=== PATIENT | female | born 1965 | race African-American/Black ===

== ENCOUNTER 2019-03-08 21:02 | Emergency (ER) | payer OTHER ==
[2019-03-08 21:08] VITALS: BP 163/88; PULSE 81; TEMP 98.2; BMI 27.4
--- NOTE | 2019-03-08 22:16 | PDOC ---
History of Present Illness - General Chief Complaint: Pain Stated Complaint: ABD PAIN Time Seen by Provider: 03/08/19 22:09 History Source: Patient - History of Present Illness Timing/Duration: reports: intermittent Pain Radiation: reports: LUQ, epigastric Past History - Past Medical History COPD: No GI Disorders: Yes (GERD) HTN: Yes - Suicide/Smoking/Psychosocial Hx Smoking History: Never smoked Hx Alcohol Use: No Drug/Substance Use Hx: No Review of Systems - Review of Systems Constitutional: No: Chills, Fever ABD/GI: No: Blood Streaked Bowels, Constipated, Diarrhea, Nausea, Rectal Bleeding, Vomiting, Abdominal cramping, Tarry Stools : No: Dysuria, Flank Pain, Hematuria *Physical Exam - Vital Signs Last Vital Signs Temp Pulse Resp BP Pulse Ox 98.2 F 81 19 163/88 100 03/08/19 21:04 03/08/19 21:04 03/08/19 21:04 03/08/19 21:04 03/08/19 21:04 - Physical Exam General Appearance: Yes: Appropriately Dressed. No: Apparent Distress HEENT: positive: Normal Voice Neck: positive: Supple Respiratory/Chest: positive: Lungs Clear, Normal Breath Sounds. negative: Respiratory Distress Cardiovascular: positive: Regular Rate, S1, S2 Gastrointestinal/Abdominal: positive: Normal Bowel Sounds, Soft. negative: Tender, Distended, Guarding, Rebound Musculoskeletal: negative: CVA Tenderness Integumentary: positive: Dry, Warm Neurologic: positive: Fully Oriented, Alert, Normal Mood/Affect Medical Decision Making - Medical Decision Making 03/08/19 22:10 54 yo F, h/o HTN, gastritis, no longer takes pepcid, here to discuss recent EGD report. States 2 years ago she developed upper abdominal pain and was seen by Dr Encarnacion of GI and had EGD done 10/2018. Patient states she was told prior to study that she most likely have gastritis. States no one followed up with her to give her official EGD report however, but that she was finally able to obtain a copy of report yesterday and now here to discuss results. Per report on pt's person, EGD showed chronic gastritis and a 4 cm hiatal hernia with negative biopsy and negative H. pylori per report. Pt states she is concerned about the hiatal hernia as diagnosis is new to her. Continues to have intermittent upper abd pain and states she stopped taking pepcid as meds was not improving sxs. No acute or new GI sxs at this time. Pt well tylor and stable w / benign abd. EGD findings d/w pt in length. Told to take zantac OTC prn pain and call Dr Encarnacion on Sunday to discuss EGD findings and further management. *DC/Admit/Observation/Transfer Diagnosis at time of Disposition: Upper abdominal pain - Discharge Dispostion Disposition: HOME Condition at time of disposition: Improved - Referrals - Patient Instructions Printed Discharge Instructions: Gastritis Additional Instructions: Your EGD report shows chronic gastritis which could explain your symptoms You also have a hiatal hernia Take zantac as directed over the counter Please call Dr Encarnacion on Sunday - Post Discharge Activity
== END 2019-03-08 22:42 | disposition home or self-care (01) ==
LOC: JER 21:02
DX: F10.10 Alcohol abuse, uncomplicated (principal); I10 Essential (primary) hypertension
CPT/HCPCS: 99282-25

== ENCOUNTER 2020-02-09 10:13 | Emergency (ER) | payer OTHER ==
[2020-02-09] MEDS ORDERED: PANTOPRAZOLE SODIUM 40 MG VIAL IVPUSH ONE (10:23)
[2020-02-09 10:26] VITALS: TEMP 97.5; BMI 28.4
--- NOTE | 2020-02-09 10:26 | PDOC ---
Rapid Medical Evaluation Chief Complaint: Pain Time Seen by Provider: 02/09/20 10:20 Medical Evaluation: Allergies Allergy/AdvReac Type Severity Reaction Status Date / Time No Known Allergies Allergy Verified 02/09/20 10:21 02/09/20 10:23 CC: burning to mid chest, was told it was gastritis and has inflammation to LUQ and prescribed flagyl and prednisone Exam: tender to epigastric region Plan: labs, ekg Discharge Disposition - Diagnosis Upper abdominal pain - Referrals - Patient Instructions - Post Discharge Activity
[2020-02-09] MEDS ORDERED: FAMOTIDINE 20 MG/50 ML IVPB 20 MG/50 ML MG IVPB ONE ×2 (10:44→11:16)
[2020-02-09] MEDS ORDERED: MAG HYDROX/AL HYDROX/SIMETH 30 ML UNIT-DOSE CUP PO ONE (10:44)
--- NOTE | 2020-02-09 11:03 | PDOC ---
History of Present Illness - General Chief Complaint: Pain Stated Complaint: ABD. PAIN Time Seen by Provider: 02/09/20 10:20 History Source: Patient Exam Limitations: No Limitations - History of Present Illness Initial Comments: 02/09/20 10:58 HPI 55 YOF with h/o hiatal hernia, gastritis, HTN, GERD, presenting with epigastric burning pain, LUQ abdominal pain, intermittently since last night, radiating to her chest and exacerbated after eating. last evening, she ate stew and rice, earlier in the day had corn meal porridge prior to onset of her symptoms; denies suspicious food intake. this morning she was drinking hot tea, and subsequently had epigastric burning discomfort, coming up to her chest and throat at approx 7AM. she had EGD and colonoscopy about [address] Encarnacion; she has been told likely gastritis/hiatal hernia; she saw Dr Encarnacion as outpatient on 02/05/20, where she was told she was bloated, and rx'd flagyl 250mg tablet x 1 week course and prednisone 10mg x 3 days. she has taken 2 days of her medications, with worsening sx. she was also told to increase dose of H2 dustin, told to take pepcid BID this morning she felt twitching in her left chest, that is reproducible and associated with her sx. also told she has post nasal drip. symptoms worse in the morning such as today. similar presentation to the ED on 03/08/19, with LUQ and epigastric abdominal pain. Per report on pt's person, EGD showed chronic gastritis and a 4 cm hiatal hernia with negative biopsy and negative H. pylori per report. Pt states she is concerned about the hiatal hernia as diagnosis is new to her. Continues to have intermittent upper abd pain and states she stopped taking pepcid as meds was not improving sxs. No acute or new GI sxs at this time. Pt well tylor and stable w/ benign abd. EGD findings d/w pt in length. Told to take zantac OTC prn pain and call Dr Encarnacion on Sunday to discuss EGD findings and further management. Denies fever, chills, chest pain, SOB, palpitation, dizziness, weakness, N, V, D, bladder and bowel problems, focal weakness/paresthesias, leg swelling/pain, rash. No sick contacts or travel. No new changes in medications. No suspicious food intake Allergies: None Past Medical History/ hiatal hernia, gastritis, HTN, GERD PSH: appendectomy Social history: Lives with family. No tobacco, ETOH or drug use. Meds: as documented in EMR Family history: noncontributory GI: Dr Encarnacion Review of systems Constitutional: no fevers or chills. No weakness HEENT: no headache or dizziness. No congestion. No visual/hearing disturbances. CVS: no syncope. no palpitations. +chest burning. Resp: no sob. No cough. Gastrointestinal: no nausea, vomiting, diarrhea. +abdominal pain/burning Genitourinary: no urinary sx, hematuria. MUSCULOSKELETAL: No joint pain and swelling. No neck or back pain. SKIN: no redness or skin changes, no discharge, no rash. No wounds. Hematologic: no easy bruising/bleeding. NEUROLOGIC: No headache, dizziness, LOC or altered mental status. No weakness, numbness or tingling. Psych: no anxiety or depression Allergic/Immunologic: no allergies All other systems reviewed and negative, or as documented in HPI. Physical exam General: Well appearing, awake and alert, NAD. HEENT: NCAT, PERRL, EOMI, clear conjunctiva, anicteric, moist mucus membranes, clear oropharynx, no oral lesions.. Neck: neck supple, FROM Resp: CTAB, normal and even respirations, no respiratory distress CVS: RRR, no murmurs, 2+ peripheral pulses throughout, no peripheral edema Abdomen: soft, NTND, no rebound or guarding. Back: nontender, normal inspection and ROM MSK: no edema, R[place] x4, ROM intact. No clubbing or cyanosis. normal bulk and tone. Extremities: no calf tenderness Neuro: alert, oriented appropriately; no focal neurologic deficits Psych: Calm and cooperative Skin: warm and well perfused, cap refill <2 sec, normal color, no rash or skin discoloration. 02/09/20 11:03 02/09/20 11:04 02/09/20 12:46 Past History - Medical History Allergies/Adverse Reactions: Allergies Allergy/AdvReac Type Severity Reaction Status Date / Time No Known Allergies Allergy Verified 02/09/20 10:21 COPD: No GI Disorders: Yes (GERD) HTN: Yes - Psycho-Social/Smoking History Smoking History: Never smoked - Substance Abuse Hx (Audit-C & DAST Scrn) How often the patient has a drink containing alcohol: Never Score: In Men: 4 or > Positive; In Women: 3 or > Positive: 0 Screen Result (Pos requires Nsg. Audit-10AR): Negative *Physical Exam - Vital Signs Last Vital Signs Temp Pulse Resp BP Pulse Ox 97.5 F L 91 H 17 194/109 H 99 02/09/20 10:21 02/09/20 10:21 02/09/20 10:21 02/09/20 10:21 02/09/20 10:21 Heart Score/ECG Review #1 ECG reviewed & interpreted by me at: 10:35 General ECG Interpretation: Sinus Rhythm, Normal Rate, Normal Intervals 02/09/20 11:42 EKG normal sinus rhythm 81 bpm transfer tech, no interval abnormalities, narrow QRS, ST and T wave segments and morphology normal. ED Treatment Course - LABORATORY CBC & Chemistry Diagram: 02/09/20 10:50 02/09/20 10:50 Medical Decision Making - Medical Decision Making 02/09/20 11:02 Vital Signs Temp Pulse Resp BP Pulse Ox 97.5 F L 91 H 17 194/109 H 99 02/09/20 10:21 02/09/20 10:21 02/09/20 10:21 02/09/20 10:21 02/09/20 10:21 vitals with HTN, has h/o HTN normal HR afebrile, no systemic sx. DDx abdominal pain: Renal colic, biliary colic, metabolic/electrolyte derangem ents. GERD, PUD, esophageal spasm, pancreatitis, hepatitis, constipation, colitis, gastroenteritis, cholecystitis, medication side effect, hernia/hiatal hernia flare no GIB no abdominal tenderness. nonperitoneal no urinary sx no obstructive sx. labs and lytes wnl, normal lipase and LFTs. neg trop, unlikely ACS, with normal nonischemic EKG The patient appears comfortable and states she currently does not have any pain; no cp or sob or abdominal pain. Given medications GI cocktail, maalox/pepcid with clinical improvement. Tolerating oral intake. Vital signs reviewed and are normal. On repeat physical exam, the abdomen is soft and nontender, no suggestive findings for acute abdominal process at this time. repeat VS normalized, no longer HTN. On repeat examination prior to discharge, the patient has a soft abdomen with no peritoneal findings. The patient was advised that even though there is no evidence of a surgical emergency at this time, sometimes this is not visible in the labs early in a disease course and that if there is additional pain they are to return for repeat evaluation. The patient stated understanding of this, has decision making capacity and is discharged in stable condition. The patient was instructed to return to the emergency department for re-evaluation in 8-12 hours and sooner if they feel worse in any way. told to f/u Dr Encarnacion as outpatient told likely med side effect and to stop prednisone which increases risk of bleeding/ulcers and HTN, as well as abx flagyl which has also likely contributed to sx. likely gerd/gastritis, symptom management, hydration and avoid triggers Pt to be discharged in stable condition. Patient and family made aware of c linical impression, treatment recommendations and disposition plan, return precautions discussed (including but not limited to new or persistent/worsening symptoms, pain, fevers, or signs of infection, chest pain, respiratory distress, inability to tolerate oral intake, dehydration, syncope, or neurologic changes). Follow up with PMD and/or specialist as recommended, follow up information provided, take medications as instructed for duration of time. continue with supportive care, avoid triggers and precipitants. All questions answered to patient's satisfaction and expressed understanding and comfort with this. At the time of discharge, the patient is alert, clinically improved, tolerating po and verbalizes understanding of instructions, satisfied with the care received and felt comfortable with the plan. Patient does not suffer from an acute life- threatening medical condition at this time and is safe for outpatient follow- up. 02/09/20 12:46 02/09/20 12:48 02/09/20 12:51 Discharge - Discharge Information Problems reviewed: Yes Clinical Impression/Diagnosis: Upper abdominal pain, Epigastric burning sensation Condition: Improved Disposition: HOME - Admission No - Follow up/Referral Referrals: Clark Encarnacion MD [Staff Physician] - - Patient Discharge Instructions Patient Printed Discharge Instructions: DI for Gastritis, DI for Abdominal Pain-Adult, GERD Diet Additional Instructions: 1) Please follow-up with your primary care doctor/Dr Encarnacion in the next 1-2 days. Please call tomorrow for for any urgent issues. 2) You were given a copy of the tests performed today. Please bring the results with you and review them with your primary care doctor. Your laboratory / imaging results were normal, including your blood work 3) If you have any worsening of symptoms or any other concerns please return to the ED immediately. Return if worsening symptoms including fevers, headache, vomiting, visual or hearing disturbances, abdominal pain, chest pain, shortness of breath, syncope, dehydration, inability to take things by mouth/vomiting, altered mental status, or worsening concerning symptoms. 4) Please continue taking your home medications as directed. your medications on discharge include maalox every 6 hours as needed to prevent heart burn . side effects may include upset stomach, abdominal pain, vomiting, or diarrhea. do not drink alcohol with your medications. Stay well hydrated and rest adequately. Make an appointment. If you cannot follow-up with your primary care doctor please return to the ED Please return to the emergency department immediately should you feel worse in any way or have any of the following symptoms: increasing or different abdominal pain, persistent vomiting, fevers or shaking chills. Please return to the emergency department for a recheck in 8-12 hours if the pain is persistent or worse so we can re-evaluate you and ensure that you are not developing a problem that would require surgery or hospitalization. - Post Discharge Activity
[2020-02-09 11:15] LABS: BASO % 1.1 % (0-2.0); EOS % 0.5 % (0-4.5); HEMATOCRIT 38.9 % (32.4-45.2); LYMPH % 39.9 % (8-40); MCH 30.8 pg (25.7-33.7); MCHC 33.3 g/dl (32.0-36.0); MEAN CELL VOLUME 92.4 fl (80-96); MEAN PLT VOLUME 7.5 fl (7.5-11.1); MONO % 7.8 % (3.8-10.2); NEUT % 50.7 % (42.8-82.8); PLATELET COUNT 274 K/MM3 (134-434); RBC 4.21 M/mm3 (3.60-5.2); RDW 12.6 % (11.6-15.6); WHITE BLOOD COUNT 6.1 K/mm3 (4.0-10.0)
[2020-02-09] MEDS ORDERED: MAG HYDROX/AL HYDROX/SIMETH 30 ML UNIT-DOSE CUP ONE (11:16)
[2020-02-09] MEDS ORDERED: ACETAMINOPHEN 325 MG TABLET (FP) PO ONE (11:16)
[2020-02-09] MEDS ORDERED: ACETAMINOPHEN 325 MG TABLET (FP) ONE ×2 (11:17→11:19)
[2020-02-09 12:03] LABS: ALK PHOS 112 U/L (45-117); ANION GAP 7 MMOL/L (8-16); BILIRUBIN,TOTAL 0.5 mg/dL (0.2-1); BLOOD UREA NITROGEN 9.7 mg/dL (7-18); CALCIUM 9.3 mg/dL (8.5-10.1); CHLORIDE 107 mmol/L (98-107); CO2 27 mmol/L (21-32); GLUCOSE,RANDOM 91 mg/dL (74-106); LIPASE 211 U/L (73-393); MAGNESIUM 2.1 mg/dL (1.8-2.4); POTASSIUM 3.6 mmol/L (3.5-5.1); SGOT/AST 15 U/L (15-37); SGPT/ALT 22 U/L (13-61); SODIUM 140 mmol/L (136-145); TOT PROT 7.6 g/dl (6.4-8.2)
[2020-02-09 12:50] VITALS: BP 169/90; PULSE 72
--- NOTE | 2020-02-10 10:45 | EKG ---
Test Reason : Blood Pressure : / mmHG Vent. Rate : 081 BPM Atrial Rate : 081 BPM P-R Int : 162 ms QRS Dur : 078 ms QT Int : 390 ms P-R-T Axes : 002 049 033 degrees QTc Int : 453 ms POOR DATA QUALITY, INTERPRETATION MAY BE ADVERSELY AFFECTED NORMAL SINUS RHYTHM POSSIBLE LEFT ATRIAL ENLARGEMENT BORDERLINE ECG NO PREVIOUS ECGS AVAILABLE Confirmed by Feliberto Villaseñor ([id number]) on 02/10/2020 10:45:17 AM Referred By: Confirmed By:Feliberto Villaseñor
== END 2020-02-09 13:26 | disposition home or self-care (01) ==
LOC: JER 10:13
PROC: 3E033GC Introduction of Other Therapeutic Substance into Peripheral Vein, Percutaneous Approach (ICD-10-PCS; principal; 2020-02-09)
DX: R10.10 Upper abdominal pain, unspecified (principal); R10.13 Epigastric pain
CPT/HCPCS: 36415; 80053; 83690; 83735; 84484; 85025; 93005; 93010; 99284-25